=== PATIENT | female | born 1980 | race Caucasian/White ===

== ENCOUNTER 2023-04-18 07:41 | Outpatient (CLI) | payer OTHER, SELFPAY ==
--- NOTE | ~2023-04-18 | MM_ITS ---
EXAMINATION: MM screening raghu BI w sarbjit HISTORY: Screening mammogram TECHNIQUE: Craniocaudal and mediolateral oblique 3-D tomosynthesis images were obtained and synthetic 2-D images were generated. Bilateral rotated lateral CC views. CAD analysis was submitted and interp reted. COMPARISON: Baseline examination. No prior mammogram is available for comparison at this institution. BREAST PARENCHYMAL COMPOSITION: The breasts are extremely dense, which lowers the sensitivity of mamm ography. FINDINGS: There is no evidence of suspicious mass, calcification, or architectural distortion to sugg est malignancy in either breast. There has been no suspicious interval change. IMPRESSION: 1. No mammographic evidence of malignancy. 2. Recommend routine screening mammography in one year. BI-RADS Category 1: Negative Reviewed, dictated and finalized at location A. 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
== END 2023-04-18 07:42 ==
PROVIDERS: PCP Obstetrics & Gynecology; Visit Provider Nurse Practitioner Family
DX: Z12.31 Encounter for screening mammogram for malignant neoplasm of breast (principal)
CPT/HCPCS: 77063; 77067

== ENCOUNTER 2023-04-27 09:11 | Outpatient (CLI) | payer OTHER, SELFPAY ==
[2023-04-27 12:52] LABS: Hematocrit 41.2 % (37.0-47.0); Hemoglobin 12.9 g/dL (12.0-15.0); Mean Corpuscular HGB Conc 31.3 g/dl (32-36); Mean Corpuscular Hemoglobin 30.1 pg (26-34); Mean Platelet Volume 11.5 fl (7.4-10.4); Platelet Count Result 149 k/mm3 (150-375); Red Blood Count 4.29 M/mm3 (4.2-5.4); Red Cell Distribution Width 13.4 % (11.5-14.5); White Blood Count 4.7 K/mm3 (4.5-10.0)
[2023-04-27 13:15] LABS: Iron 80 ug/dL (37-170)
[2023-04-27 13:16] LABS: Alanine Aminotransferase 15 U/L (6-35); Albumin Level 4.4 g/dL (3.5-5.1); Alkaline Phosphatase 51 U/L (38-126); Anion Gap 3 mmol/L (8-16); Aspartate Amino Transferase 38 U/L (14-36); Bilirubin,Total 0.6 mg/dL (0.2-1.3); Blood Urea Nitrogen 21 mg/dL (7-17); Calcium 9.3 mg/dL (8.4-10.2); Carbon Dioxide 30 mmol/L (22-30); Chloride 104 mmol/L (98-107); Cholesterol 150 mg/dL (0-200); Estimated Glomerular Filt Rate > 60; Glucose 87 mg/dL (65-110); HDL Direct 63 mg/dL; Magnesium 2.2 mg/dL (1.6-2.3); Potassium 4.5 mmol/L (3.4-5.0); Sodium 137 mmol/L (137-145); Triglycerides 55 mg/dL (<150)
[2023-04-27 13:28] LABS: LDL Cholesterol Direct 76 mg/dL
[2023-04-27 13:30] LABS: Percent Iron Saturation 27 % (20-50)
[2023-04-27 13:52] LABS: Thyroid Stimulating Hormone 0.949 uIU/mL (0.465-4.680)
[2023-04-27 13:53] LABS: Vitamin D 25 Hydroxy 55.2 ng/mL
[2023-04-27 15:09] LABS: Folic Acid 15.4 ng/mL (2.76->20)
== END 2023-04-27 09:12 | disposition home or self-care (01) ==
LOC: ANHGOSHLAB 09:12
PROVIDERS: PCP Family Medicine; Visit Provider Nurse Practitioner Family
DX: Z13.220 Encounter for screening for lipoid disorders (principal); E56.9 Vitamin deficiency, unspecified; G25.81 Restless legs syndrome; F32.A Depression, unspecified; F41.9 Anxiety disorder, unspecified; F41.0 Panic disorder [episodic paroxysmal anxiety]; Z13.1 Encounter for screening for diabetes mellitus; Z13.29 Encounter for screening for other suspected endocrine disorder; Z86.39 Personal history of other endocrine, nutritional and metabolic disease
CPT/HCPCS: 36415; 80053; 80061; 82306; 82607; 82746; 83540; 83550; 83735; 84443; 85027

== ENCOUNTER 2024-05-06 13:08 | Outpatient (CLI) | payer BC, SELFPAY ==
--- OUTSIDE RECORDS SUMMARY | 2024-05-06 13:14 | XMS_ITS ---
Author Organization [facility] Address [address] [facility] [address] [place] [address] Care Team Providers Care Legislative Correspondent Name Role Phone Anayeli Lucio Unavailable [phone] REASON FOR VISIT Medication Adjustment and Refill Social History Sex Assigned At : Social History Observation Description Sex Assigned At Female Encounters Encounter Location Date Provider Diagnosis [facility] [place] [id number] [facility] [address] [place] [address] 12/25/2023 Anayeli Lucio Plan Of Treatment Next Appt Details Provider Name:Anayeli Lucio, 09/27/2024 10:30:00 AM, [address], [facility] [address], [place], [address], Progress Notes * SHAYLEE CHAMBERS MDOB:09/1980 (43 yo F)Acc No.[id number]:12/25/2023 Patient: SHAYLEE MCHUGH :1980 A ge:43 Y S ex:Female Address:[address], [place], [address] * true * Date: Generated for Printi ng/Fachristag/eTransmitting on: 05/06/2024 01:14 PM CDT
--- OUTSIDE RECORDS SUMMARY | 2024-05-06 13:14 | XMS_ITS | Clinical Summary ---
Author Organization [facility] [address] Address [address] [place] [address] Care Team Providers Care Ed Transporter Name Role Phone Ian Yusuf MD Primary Care Provider [phone] Allergies No known active allergies Medications No known medications Active Problems No known active problems Social History Tobacco Use Types Packs/Day Years Used Date Smoking Tobacco: Never Assessed Personal Safety Answer Date Recorded Getting School Help Needed Not on file 03/14 Comments Unknown Sex and Gender Information Value Date Recorded Sex Assigned at Not on file Legal Sex Female 5:53 PM LYMPHEDEMA THERAPIST Gender Identity Not on file Sexual Orientation Not on file Last Filed Vital Signs Vital Sign Reading Time Taken Comments Blood Pressure 112/60 12/08/2023 12:21 PM CDT Pulse 93 12/08/2023 12:21 PM CDT Temperature 36.9 C (98.4 F) 12/08/2023 12:21 PM CDT Respiratory Rate 22 12/08/2023 12:21 PM CDT Oxygen Saturation 96% 12/08/2023 12:21 PM CDT Inhaled Oxygen Concentration - - Weight 60.9 kg (134 lb 3.2 oz) 12/08/2023 12:21 PM CDT Height 152.4 cm (5') 12/08/2023 12:21 PM CDT Body Mass Index 26.21 12/08/2023 12:21 PM CDT Plan of Treatment Health Maintenance Due Date Last Done Comments Breast Cancer Screening-Mammogram 1982 Cervical Cancer Screening 1982 Depression Screening 1982 Hepatitis C Screening 1982 Varicella Vaccines (1 of 2 - 13+ 2-dose series) 05/18/1995 Hepatitis B Screening 2000 Regular Well Visit/Exam 18-64 2000 Covid-19 Vaccine ( season) 2023 12/19/2021, 12/24/2020, 04/15/2020, Additional history exists Influenza Vaccine (#1) 2023 , 12/19/2021, 12/10/2020, Additional history exists DTaP/Tdap/Td Vaccine (2 - Td or Tdap) 06/02/2028 06/02/2018 HPV Vaccines Aged Out No longer eligi ble based on patient's age to complete this topic Pneumococcal vaccine <65 Aged Out No longer eligible based on patient's age to complete this topic Insurance Care Teams Ed Transporter Relationship Specialty Start Date End Date Ian Yusuf MD PCP - General Family Medicine 03/14/23
--- OUTSIDE RECORDS SUMMARY | 2024-05-06 13:14 | XMS_ITS | Patient Health Record ---
Author Organization [facility] Address [address] [facility] [address] [place] [address] Care Team Providers Care Petrophysicist Name Role Phone Anayeli Lucio Unavailable [phone] Migration, Provider Unavailable Unavailable Allergies No Known Allergies Results Component Value Reference Range Notes DRUG SCREEN, 14 DRUGS (DETEC TIMED), URINE Reviewed date:05/20/2023 12:00:00 AM Interpretation: Performing Lab: Notes/Report: Amphetamine negative Barbiturates negative Benzodiazipine negative Buprenorphine negative Cocaine negative MDMA/Ectasy negative Methadone negative Methamphetamine negative Morphine negative note ALL NEG Oxycodone negative Phenocyclidine negative THC negative Reason For Referral No Information Medications Medication SIG (Take, Route, Frequency, Duration) Notes Start Date End Date Status Escitalopram Oxalate 5 MG 1 tablet Oral Once a day for 90 days Active Calcium *Pick strength-form from [email or web address] for eRX* 05/20/2023 Active Social History Sex Assigned At : Social History Observation Description Sex Assigned At Female Household Question Answer Notes Marital status: Problems Problem Type SNOMED Code ICD Code Onset Dates Problem Status W/U Status Risk Notes Problem Generalized anxiety disorder (24531383) Generalized anxiety disorder (F41.1) Active confirmed well controlled, continue current therapy Vital Signs Heart Rate 67 /min 05/20/2023 Height-cm 172.72 cm 05/20/2023 Blood pressure diastolic 80 mm Hg 05/20/2023 Weight-kg 57.42 kg 05/20/2023 Height 68.00 in 05/20/2023 Blood pressure systolic 118 mm Hg 05/20/2023 Weight 126.60 lbs 05/20/2023 BMI 19.2 kg/m2 05/20/2023 Encounters Encounter Location Date Provider Diagnosis [facility] [address] [place] [address] 05/20/2023 Anayeli Lucio Generalized anxiety disorder F41.1 [facility] [address] [place] [address] 09/28/2023 Anayeli Lucio Generalized anxiety disorder F41.1 [facility] [address] [place] [address] 03/30/2024 Anayeli Lucio Generalized anxiety disorder F41.1 [facility] [address] [place] [address] 05/20/2023 Provider Migration [facility] [address] [place] [address] 05/25/2023 Provider Migration [facility] [address] [place] [address] 06/12/2023 Provider Migration [facility] [address] [place] [address] 06/27/2023 Provider Migration [facility] [address] [place] [address] 06/28/2023 Provider Migration [facility], [facility] [address] [place] [address] 12/25/2023 Anayeli Lucio [facility] [address] [place] [address] 12/25/2023 Anayeli Lucio Generalized anxiety disorder F41.1 Assessments Encounter Date Diagnosis (ICD Code) Assessment Notes Treatment Notes Treatment Clinical Notes Section Notes 09/28/2023 Generalized anxiety disorder (ICD-10 - F41.1) 12/25/2023 Generalized anxiety disorder (ICD-10 - F41.1) 03/30/2024 Generalized anxiety disorder (ICD-10 - F41.1) well controlled, continue current therapy SSRI/SNRI side effects discussed including but not limited to, gastric upset, nausea, vomiting, diarrhea and/or constipation, weight changes, sexual side effects including loss of libido, increased suicidal thoughts/behavio rs in children and young adults, and serotonin syndrome. 05/20/2023 Generalized anxiety disorder (ICD-10 - F41.1) 09/28/2023 Other Continue escitalopram 10mg daily. Discussed she may break in half and try 5mg daily and monitor symptoms in future. Patient educated on all medications including potential benefits, side effects, risks. Educated on proper dosing schedule and importance of compliance. 03/30/2024 Other Stable, continue escitalopram 5mg daily for anxiety. Patient educated on all medications including potential benefits, side effects, risks. Educated on proper dosing schedule and importance of compliance. -Assessment and treatment plan reviewed with patient. -Compliance with treatment plan importance discussed. -Discussed the risks/benefits of this medication -Discussed medication side effects. -Contact office if symptoms worsen. -Discussed that it can take up to 6-8 weeks to see full therapeutic effects of psychotropic medications. -Crisis prevention hotline 238. Plan Of Treatment Next Appt Details Provider Name:Anayeli Lucio, 09/27/2024 10:30:00 AM, [address], [facility] [address], [place], [address], Insurance Providers Payer Name Payer Address Payer Phone Subscriber Number Group Number Insured Name Patient Relationship to Insured Coverage Start Date Coverage End Date [facility] [address] [place] [address] [id number] SHAYLEE CHAMBERS Self - patient is the insured Medical (General) History Medical History History ICD Code Problems: Generalized anxiety disorder ,
--- OUTSIDE RECORDS SUMMARY | 2024-05-06 13:14 | XMS_ITS | Clinical Summary ---
Author Organization [facility] Address [address] [place] [address] Care Team Providers Care Training Officer Name Role Phone Ian Yusuf MD Primary Care Provider [phone] Source Comments [facility],non-owned Affiliates and Associated Physician Practices is amultiple site organization consisting of ambulatory clinics and hospital sitesin [place], [place], [place] and [place]. This disclosure is being madepursuant to the Care Everywhere program and may not contain all information available regarding this patient. Last updated 17.[facility] [employer] Allergies No known active allergies Medications Be aware that medications may not be up to date on this document. Always verify current medications with the patient. No known medications Immunizations Name Administration Dates Next Due Covid Moderna primary monova lent 12+ yr 0.5mL 12/24/2020,04/15/2020,03/15/2020 Social History Tobacco Use Types Packs/Day Years Used Date Smoking Tobacco: Never Smokeless Tobacco: Never PHQ-2 Answer Date Recorded PHQ2 TOTAL SCORE 0 02/08/2021 Sex and Gender Information Value Date Recorded Sex Assigned at Not on file Gender Identity Not on file Sexual Orientation Not on file Plan of Treatment Health Maintenance Due Date Last Done Comments LIPID TESTING 1982 MAMMOGRAM 1982 PAP SMEAR 1982 HIV SCREENING 1997 HEPATITIS C SCREENING 05/12/2000 DTAP/TDAP/TD VACCINES (1 - Tdap) 2001 HEPATITIS B VACCINE (1 of 3 - 19+ 3-dose series) 2001 COVID-19 VACCINE ( - 2023- season) 2023 12/24/2020, 04/15/2020, 03/15/2020 INFLUENZA VACCINE (#1) 2023 1, 12/04/2019, 11/24/2017, Additional history exists DEPRESSION SCREENING 02/10/2024 ZOSTER VACCINE (1 of 2) 2032 HIB VACCINE Aged Out No longer eligi ble based on patient's age to complete this topic HPV VACCINE Aged Out No longer eligi ble based on patient's age to complete this topic MENINGOCOCCAL (Group B) VACCINE SHARED DECISION-MAKING Aged Out No longer eligible based on patient's age to complete this topic MENINGOCOCCAL GROUPS A/C/Y/W VACCINE Aged Out No longer eligible based on patient's age to complete this topic PNEUMOCOCCAL VACCINE Aged Out No long er eligible based on patient's age to complete this topic Care Teams Training Officer Relationship Specialty Start Date End Date Ian Yusuf MD [address] [place] [address] PCP - General Family Medicine 02/08/21
--- OUTSIDE RECORDS SUMMARY | 2024-05-06 13:14 | XMS_ITS | Continuity of Care Document ---
Author Organization [facility] Address [address] [place] [address] Phone Care Team Providers Care Business Management Analyst Name Role Phone Bereket Penaloza MD, FACS Unavailable Unavailab le Allergies, Adverse Reactions, Alerts Substance Reaction Status Criticality No Known allergies Medications Medication Instructions Dosage Effective Dates (start - stop) Status Comments Ortho Tri-Cyclen Lo 0.18/0.215/0.25 mg-25 mcg Tab take 1 tablet by ORAL route every day - Active Loratadine 10 mg Tab take 1 tablet (10MG ) by ORAL route every day 10 MG - Active Triamcinolone Acetonide 0.5 % Topical Cream apply by TOPICAL route 2 times every day a thin film to the affected skin areas - Active Retin-A 0.05 % Topical Cream apply by TOPICAL route every day to the affected area(s) - Active Procedures Procedure Date Office/outpatient Visit, [facility] Corneal Topography No Charge Optomap Fundus Photos 013 Advance Directives Directive Yes / No Effective Date File Name Resuscitation Not Answered N/A N/A Life Support Not Answered N/A N/A Intubation Not Answered N/A N/A Antibiotics Not Answered N/A N/A IV Fluid Support Not Answered N/A N/A Tube Feed Not Answered N/A N/A Other Directive N/A N/A WARNING:The information contained in this section is historical and is provided for information only and does not constitute a legal document or any assurance that the information is still accurate. Please verify the information with the gtz of the legal document before using it for clinical purposes. Encounters Encounter Description Practice Location Reason(s) For Visit Diagnoses Date Provider Providers Copied on Encounter Office/outpat ient Visit, [facility], [address], [place], [place], [id number], [place] tel:[phone] SEC Anshul Diggs blurry vision (chief complaint) NODULAR CORNEA DEGEN [place]. [address], [place], [place], [id number], [place]. tel:[phone] Referring Provider: Cosmo Mojica OD F, [address], [place], [address]. tel:[phone] Family History Family Member Type Diagnosis Age At Onset No Information Payers Payer name Insurance type Covered democrat ID Mangoloretta escalera(s) [facility] Commercial CI [id number] Social History Type Description Quantity Date Captured Comments Alcohol Use Details Caffeine Use Details 1 cup per day Tobacco Use Status No Information Smoking Status No Information Sex Female Chief Complaint And Reason For Visit From encounter dated '07/06/2012 09:30'. blurry vision (chief complaint) Reason For Referral Reason For Referral No Information History Of Present Illness Encounter Date Complaint History Of Prese nt Illness No Information Functional Status Date Functional Assessmen t No Information Instructions Date Instruction Additional Infor mation - If treatment ismael ed pt will schedule SK, otherwise return to Dr. 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 Discussed inferior steepening with pt, and discussed ? of relation due to nodular degeneration. pt aware if this resolves after SK. LASIK may be an option, Collagen Crosslinking discussed if inferior steepening remains Pt aware at this time this procedure is not FDA approved.Letter dictated to Dr. Mojica. Copy of Orbscan given to pt for Dr. Mojica to have a copy. Related to NODULAR CORNEA DEGEN Assessments Type Assessment Date No Information Patient Care Teams Name Effective Dates (start - stop) Status Members No Information
--- OUTSIDE RECORDS SUMMARY | 2024-05-06 13:14 | XMS_ITS | Referral Summary ---
Author Organization [facility] [address] Address [address] [place] [address] Care Team Providers Care Special Education Paraprofessional Name Role Phone Ian Yusuf MD Primary Care Provider [phone] Allergies No known active allergies Medications No known medications Active Problems No known active problems Social History Tobacco Use Types Packs/Day Years Used Date Smoking Tobacco: Never Assessed Personal Safety Answer Date Recorded Getting School Help Needed Not on file 03/14 Comments Unknown Sex and Gender Information Value Date Recorded Sex Assigned at Not on file Legal Sex Female 5:53 PM SERVICES MGR Gender Identity Not on file Sexual Orientation [...] 12/08/2023 12:21 PM CDT Plan of Treatment Not on file Insurance [facility] Care Teams Special Education Paraprofessional Relationship Specialty Start Date End Date Ian Yusuf MD PCP - General Family Medicine 03/14/23
--- OUTSIDE RECORDS SUMMARY | 2024-05-06 13:14 | XMS_ITS ---
Author Organization [facility] [employer] [facility] Address [facility] [address] [facility] [address] [place] [address] Care Team Providers Care Fire Marshal Refinery Name Role Phone NaveedAnayeli priest Unavailable [phone] REASON FOR VISIT New Refill Request Medications Medication SIG (Take, Route, Frequency, Duration) Notes Start Date End Date Status Escitalopram Oxalate 5 MG 1 tablet Oral Once a day for 90 days 05/20/2023 Active Social History Sex Assigned At : Social History Observation Description Sex Assigned At Female Encounters Encounter Location Date Provider Diagnosis [facility] [employer] [facility] [address] [facility] [address] [place] [address] 12/25/2023 Anayeli Lucio Generalized anxiety disorder F41.1 Assessments Encounter Date Diagnosis (ICD Code) Assessment Notes Treatment Notes Treatment Clinical Notes Section Notes 12/25/2023 Generalized anxiety disorder (ICD-10 - F41.1) Plan Of Treatment Medication Medication Name Sig Start Date Stop Date Notes Escitalopram Oxalate 5 MG 1 tablet Oral Once a day for 90 days 05/20/2023 Next Appt Details Provider Name:Anayeli Lucio, 09/27/2024 10:30:00 AM, [address], [facility] [address], [place], [address], Progress Notes * SHAYLEE CHAMBERS MDOB:09/1980 (43 yo F)Acc No.[id number]:12/25/2023 Patient: SHAYLEE MCHUGH :1980 A ge:43 Y S ex:Female Address:[address], [place], [address] * Refills Refill Escitalopram Oxalate Tablet, 5 MG, Oral, 90 Tablet, 1 tablet, Once a day, 90 days, Refills=0 * true * Date: Generated for Meeta regan/Zia/Florencio on: 0 05/06/2024 01:14 PM CDT
[2024-05-06 18:03] LABS: Basophils Percent Auto 0.3 % (0.2-1.2); Eosinophils Absolute Auto 0.1 K/mm3 (0-0.3); Hematocrit 38.6 % (37.0-47.0); Hemoglobin 12.5 g/dL (12.0-15.0); Immature Granulocyte Absolute 0.01 K/mm3 (0.00-0.031); Immature Granulocyte Percent A 0.1 % (0-0.5); Lymphocytes Absolute Auto 2.24 K/mm3 (0.9-3.2); Lymphocytes Percent Auto 29.1 % (18.3-44.2); Mean Corpuscular HGB Conc 32.4 g/dl (32-36); Mean Corpuscular Hemoglobin 30.6 pg (26-34); Mean Corpuscular Volume 94.4 fl (80-100); Mean Platelet Volume 11.1 fl (7.4-10.4); Monocytes Absolute Auto 0.5 K/mm3 (0.1-0.6); Monocytes Percent Auto 6.2 % (2.6-8.5); Neutrophils Absolute Auto 4.9 K/mm3 (1.3-6.7); Neutrophils Percent Auto 63.3 % (45.5-73.1); Platelet Count Result 201 k/mm3 (150-375); Red Blood Count 4.09 M/mm3 (4.2-5.4); Red Cell Distribution Width 13.1 % (11.5-14.5); White Blood Count 7.7 K/mm3 (4.5-10.0)
[2024-05-06 18:28] LABS: Alanine Aminotransferase 25 U/L (6-35); Albumin Level 4.4 g/dL (3.5-5.1); Alkaline Phosphatase 60 U/L (38-126); Aspartate Amino Transferase 34 U/L (14-36); Bilirubin,Total 0.5 mg/dL (0.2-1.3)
== END 2024-05-06 13:09 | disposition home or self-care (01) ==
LOC: ANHGOSHLAB 13:09
PROVIDERS: PCP Family Medicine; Visit Provider Physician Assistant Medical
DX: R71.8 Other abnormality of red blood cells (principal); R74.01 Elevation of levels of liver transaminase levels
CPT/HCPCS: 36415; 80076; 85025

== ENCOUNTER 2024-09-27 11:20 | Outpatient (CLI) | payer BC, SELFPAY ==
--- NOTE | ~2024-09-27 | MM_ITS ---
EXAMINATION: MM screening raghu BI w sarbjit HISTORY: Screening mammogram, family history of breast cancer in her mother. TECHNIQUE: Craniocaudal and mediolateral oblique 3-D tomosynthesis images were obtained and synthetic 2-D images were generated. CAD analysis was submitted and interpreted. COMPARISON: 04/18/2023 BREAST PARENCHYMAL COMPOSITION:Dense: The breasts are extremely dense, which lowers the sensitivity of mammography. FINDINGS: No suspicious mass, calcification, or architectural distortion are identified in either breast to suggest malignancy. There has been no suspicious interval change. IMPRESSION: No mammographic evidence of malignancy. Recommend routine screening mammography in one year. BI-RADS Category 1: Negative Reviewed, dictated and finalized at location .
== END 2024-09-27 11:21 | disposition home or self-care (01) ==
LOC: MICIMG 11:21
PROVIDERS: PCP Obstetrics & Gynecology; Visit Provider Obstetrics & Gynecology
DX: Z12.31 Encounter for screening mammogram for malignant neoplasm of breast (principal)
CPT/HCPCS: 77063; 77067